=== PATIENT | female | born 1995 | race Hispanic/Latino ===

== ENCOUNTER 2024-05-19 17:42 | Emergency (ER) | payer BC | END 2024-05-19 18:11 | LOC: CSHERS 17:42 | DX: Z53.21 Procedure and treatment not carried out due to patient leaving prior to being seen by health care provider (principal) ==

== ENCOUNTER 2024-12-27 09:31 | Day surgery (SDC) | payer OTHER ==
[2024-12-20 13:44] VITALS: BMI 22.3
[2024-12-27] MEDS ORDERED: Bupivacaine/Epinephrine 0.25% 30 ML VIAL ONE (11:45)
[2024-12-27] MEDS ORDERED: Acetaminophen 500 MG TAB ONE (11:52)
[2024-12-27] MEDS ORDERED: Lidocaine 1% PF 5 ML VIAL ONE (12:05)
[2024-12-27] MEDS ORDERED: PROPOFOL 20 ML ONE (12:05)
[2024-12-27] MEDS ORDERED: CEFAZOLIN 2 GM VIAL ONE (12:14)
[2024-12-27] MEDS ORDERED: Ropivacaine 0.2% 550 ML 550 ML NERVE BLCK SCH (12:30)
[2024-12-27] MEDS ORDERED: Ondansetron PF 4 MG/2 ML Vial IVP PRN (12:30)
[2024-12-27] MEDS ORDERED: Ondansetron PF 4 MG/2 ML Vial ONE (13:03)
[2024-12-27] MEDS ORDERED: Ketorolac Tromethamine 30 MG (1 mL) VIAL ONE (13:03)
== END 2024-12-27 16:05 | disposition home or self-care (01) ==
LOC: CSHSDC 09:31
PROVIDERS: ATTEND Podiatrist Foot & Ankle Surgery
DX: M20.11 Hallux valgus (acquired), right foot (principal); M20.41 Other hammer toe(s) (acquired), right foot; F41.9 Anxiety disorder, unspecified; F32.A Depression, unspecified; Z79.899 Other long term (current) drug therapy
CPT/HCPCS: A4306; C1713; C1769; C1776; J0665; J1100; J1885; J2250; J2405; J2704; J2795; J3010